=== PATIENT | female | born 1990 | race Caucasian/White ===

== ENCOUNTER 2024-10-27 16:29 | Day surgery (SDC) | payer OTHER ==
[2024-10-27 17:09] VITALS: BMI 26.6
== END 2024-10-27 18:08 | disposition home or self-care (01) ==
LOC: CSHLD/OP 16:29
PROVIDERS: ATTEND Student in an Organized Health Care Education/Training Program
DX: O98.813 Other maternal infectious and parasitic diseases complicating pregnancy, third trimester (principal); B95.1 Streptococcus, group B, as the cause of diseases classified elsewhere; O47.1 False labor at or after 37 completed weeks of gestation; O98.513 Other viral diseases complicating pregnancy, third trimester; O09.523 Supervision of elderly multigravida, third trimester; B00.9 Herpesviral infection, unspecified; Z3A.39 39 weeks gestation of pregnancy
CPT/HCPCS: 99283

== ENCOUNTER 2024-10-31 08:34 | Inpatient (IN) | payer OTHER ==
[2024-10-31] MEDS ORDERED: hydrALAZINE 20 MG/ML VIAL SLOW IVP PRN ×2 (09:00→17:07)
[2024-10-31] MEDS ORDERED: Diphenoxylate HCl/Atropine Tablet PO PRN (09:00)
[2024-10-31] MEDS ORDERED: Oxytocin 30 units/NS 500 ML 500 ML IV SCH (09:00)
[2024-10-31] MEDS ORDERED: Tranexamic Acid 1,000 MG/10 ML VIAL IVP PRN (09:00)
[2024-10-31] MEDS ORDERED: Ondansetron PF 4 MG/2 ML Vial IVP PRN ×3 (09:00→17:07)
[2024-10-31] MEDS ORDERED: Ibuprofen 800 MG TAB PO PRN (09:00)
[2024-10-31] MEDS ORDERED: Carboprost 250 MCG/ML AMP IM PRN (09:00)
[2024-10-31] MEDS ORDERED: Acetaminophen 500 MG TAB PO PRN (09:00)
[2024-10-31] MEDS ORDERED: Methylergonovine 0.2 MG/ML VIAL IM PRN (09:00)
[2024-10-31] MEDS ORDERED: Lidocaine 1% (PF) 30 ML VIAL SC PRN (09:00)
[2024-10-31 09:11] VITALS: BMI 27.4
[2024-10-31 09:12] LABS: Hematocrit 31.6 % (34.9-44.5); Hemoglobin 9.8 g/dL (12.0-15.5); Mean Corpuscular Hemoglobin 24.9 pg (27.0-33.0); Mean Corpuscular Volume 80.4 fL (81.6-98.3); Platelet Count 328 10x3/uL (150-450); Red Blood Cell (RBC) Count 3.93 10x6/uL (3.90-5.03); White Blood Cell (WBC) Count 12.23 10x3/uL (3.5-10.5)
[2024-10-31 09:44] LABS: Hep B Surf Ag - L&D Non-Reactive S/CO (NonReactive)
[2024-10-31 09:45] LABS: Syphilis Antibody Index 0.05 S/CO (<1.00 Non-Reactive)
[2024-10-31] MEDS: Penicillin G Potassium 5 MILL.UNITS in Sodium Chloride 0.9% 100 ML IVPB SCH (09:47)
[2024-10-31] MEDS: fentaNYL/Ropivacaine Epidural 100 ML ONE (09:47)
[2024-10-31] MEDS ORDERED: Acetaminophen 325 MG TAB PO PRN (10:08)
[2024-10-31] MEDS ORDERED: diphenhydrAMINE 50 MG/ML VIAL IVP PRN (10:08)
[2024-10-31] MEDS ORDERED: fentaNYL 2 mcg/Ropivacaine 0.2% Epidural 100 ML CADD EPIDURAL SCH (10:15)
[2024-10-31] MEDS ORDERED: Communication Order-Pharmacy FS SCH (10:15)
[2024-10-31] MEDS: Penicillin G 2.5 MILL.units 2.5 MILL.UNITS in Premix 1 BAG IVPB SCH (13:36)
[2024-10-31] MEDS: Oxytocin 30 units/NS 500 ML 500 ML IV SCH (14:10)
[2024-10-31] MEDS ORDERED: Bupivacaine/Epinephrine 0.25% 30 ML VIAL ONE (17:00)
[2024-10-31] MEDS ORDERED: Bisacodyl 10 MG SUPP PR PRN (17:07)
[2024-10-31] MEDS ORDERED: HYDROcodone/Acetaminophen 5/325 mg Tablet PO PRN ×2 (17:07)
[2024-10-31] MEDS ORDERED: Lanolin Ointment 7 GM TUBE TOP PRN (17:07)
[2024-10-31] MEDS ORDERED: Preparation H Ointment 28 GM TUBE PR PRN (17:07)
[2024-10-31] MEDS ORDERED: Milk Of Magnesia 30 ML UDCUP PO PRN (17:07)
[2024-10-31] MEDS ORDERED: diphenhydrAMINE 25 MG CAP PO PRN (17:07)
[2024-10-31] MEDS: Boostrix 0.5 ML (Tdap) VIAL (>/=7 yrs of age) IM ONE (17:55)
[2024-10-31] MEDS: Penicillin G Potassium 5 MILL.UNITS VIAL ONE (17:55)
[2024-10-31] MEDS: Ferrous Sulfate 325 MG TAB PO SCH (18:00)
[2024-10-31] MEDS: Ibuprofen 800 MG TAB PO SCH (21:16)
[2024-10-31] MEDS: Benzocaine-Menthol 82.5 ML CAN TOP PRN (21:16)
[2024-11-02 07:34] VITALS: BP 121/81; TEMP 98.2
== END 2024-11-02 13:30 | disposition home or self-care (01) | DRG 768 ==
LOC: CSHLD/OP 08:34 → CSHLD 09:06 → CSHPP 16:45
PROVIDERS: ADMIT Student in an Organized Health Care Education/Training Program; ATTEND Student in an Organized Health Care Education/Training Program
PROC: 10E0XZZ Delivery of Products of Conception, External Approach (ICD-10-PCS; principal; 2024-10-31)
PROC: 0UBK7ZZ Excision of Hymen, Via Natural or Artificial Opening (ICD-10-PCS; 2024-10-31)
PROC: 3E03329 Introduction of Other Anti-infective into Peripheral Vein, Percutaneous Approach (ICD-10-PCS; 2024-10-31)
DX: O99.824 Streptococcus B carrier state complicating childbirth (principal); Z37.0 Single live birth; O98.32 Other infections with a predominantly sexual mode of transmission complicating childbirth; Z3A.39 39 weeks gestation of pregnancy
CPT/HCPCS: 36415; 51702; 85027; 86780; 86850; 86900; 86901; 87340; 99285; J2540; J2590